=== PATIENT | male | born 1970 | race Caucasian/White ===

== ENCOUNTER → 2018-08-29 | Outpatient (CLI) | payer OTHER | END | disposition home or self-care (01) | LOC: OIH 13:03 | PROVIDERS: ATTEND Internal Medicine | DX: M47.816 Spondylosis without myelopathy or radiculopathy, lumbar region (principal); M25.78 Osteophyte, vertebrae; M17.12 Unilateral primary osteoarthritis, left knee; M25.552 Pain in left hip | CPT/HCPCS: 72100; 73560 ==

== ENCOUNTER → 2022-07-26 | Outpatient (CLI) | payer OTHER | END | disposition home or self-care (01) | LOC: RESP 12:52 | PROVIDERS: ATTEND Internal Medicine | DX: R06.09 Other forms of dyspnea (principal); R60.9 Edema, unspecified; M47.815 Spondylosis without myelopathy or radiculopathy, thoracolumbar region; Z86.16 Personal history of COVID-19 | CPT/HCPCS: 71046; 94060; 94727; 94729 ==

== ENCOUNTER → 2022-08-01 | Outpatient (CLI) | payer OTHER | END | disposition home or self-care (01) | LOC: RAH 13:53 | PROVIDERS: ATTEND Internal Medicine | DX: I05.9 Rheumatic mitral valve disease, unspecified (principal); R60.9 Edema, unspecified; R06.09 Other forms of dyspnea | CPT/HCPCS: 93306 ==